=== PATIENT | female | born 1975 | race Asian ===

== ENCOUNTER 2025-02-10 10:27 | Emergency (ER) | payer BC, SELFPAY ==
[2025-02-10 10:31] VITALS: BP 138/91
[2025-02-10 11:45] VITALS: BMI 22.7
--- NOTE | 2025-02-10 12:11 | ED.GENMED ---
History of Present Illness
General
Chief Complaint: Back Pain
Source: patient
Exam Limitations: none
Time Seen by Provider: 02/10/25 11:19
Nursing documentation reviewed up to this point in time: agreed with
History of Present Illness
History of Present Illness:
49 yo female with hx HRT therapy since 08/2023, GLP1 treatment since 03/2023 presents for aching pain/sensation in the posterior R thigh, feels a 'ropy thing' along the medial aspect of the posterior thigh for past and is concerned for a blood clot.
She also states she's developed back pain since yesterday but attributes that to being aggravated by recent holiday decorating activities, including bending, standing, pushing, and pulling.
She reports a history of herniated disc, which occasionally flares up, potentially contributing to her back pain. States she would not be here for the back pain as she feels it is aggravation of her chronic intermittent pain. She was concerned that
perhaps the back pain might be related to the leg issue but was unsure. Denies CP, SOB
Past History
Past History
ED Past Medical History: Other (hemorrhoids)
ED Past Surgical History: Gynecological (Uterine ablation, endometrial polyp resection 03/21/2014) and Other (fibroadenoma resection of R breast)
Social History
Tobacco: Non-smoker
Alcohol: None
Drug: None
Personal:
Living: with family
Employment: Employed
Family History
Family History: Other (mother sarcoidosis)
Review of Systems
Review of Systems
Allergies reviewed?: Yes
All Other Systems: ROS reviewed and negative except as documented in HPI and ROS
Constitutional: Denies fever
Respiratory: Denies trouble breathing
Cardiac: Denies chest pain
ABD/GI: Denies abdominal pain
: Denies dysuria, incontinence or difficulty voiding
Musculoskeletal: Reports back pain (low back pain from doing a lot of holiday decorating past several days, similar to her past pain) and other (tender back of right thigh)
Skin: Reports no symptoms
Neurological: Denies weakness or numbness
Phy Exam
Physical Exam
Physical Exam:
GENERAL: No acute distress. A&Ox3.
CONSTITUTIONAL: Afebrile.
RESPIRATORY: Regular respirations, nonlabored, lungs clear.
CARDIOVASCULAR: Regular rate and rhythm, no murmurs, no rubs.
GI: Soft, nontender, normal BS
MUSCULOSKELETAL: Mildly tender up and down medial aspect posterior right thigh, no swelling, discoloration or palpable mass. Moves with ease. Distal n/v intact. Well perfused.
SKIN: Warm, dry, normal
PSYCH: Normal mood and affect. Well kept, interactive and appropriate
NEUROLOGIC: Awake, alert and oriented. No focal neurological deficits
Course
Orders/Labs/Results
Orders:
Orders
02/10/25 11:42
US Periph Venous LOWER Ext RT Urgent
Comment:
Reason For Exam: pain posterior thigh
Vital Signs
Initial and Last Documented VS:
Initial Vital Signs
Temp Pulse Resp BP Pulse Ox
98.3 F 84 16 138/91 100
02/10/25 10:31 02/10/25 10:31 02/10/25 10:31 02/10/25 10:31 02/10/25 10:31
Last Documented Vital Signs
Temp Pulse Resp BP Pulse Ox
98.3 F 84 16 138/91 100
02/10/25 10:31 02/10/25 10:31 02/10/25 10:31 02/10/25 10:31 02/10/25 12:17
MDM/Problems Addressed
Differential Diagnosis Includes:
DVT, muscle strain, sciatica, varicose vein
MDM/Problems Addressed:
49 yo female with hx HRT therapy since 08/2023, GLP1 treatment since 03/2023 presents for aching pain/sensation in the posterior R thigh, feels a 'ropy thing' along the medial aspect of the posterior thigh for past and is concerned for a blood clot.
She also states she's developed back pain since yesterday but attributes that to being aggravated by recent holiday decorating activities, including bending, standing, pushing, and pulling.
She reports a history of herniated disc, which occasionally flares up, potentially contributing to her back pain. States she would not be here for the back pain as she feels it is aggravation of her chronic intermittent pain. She was concerned that
perhaps the back pain might be related to the leg issue but was unsure. Denies CP, SOB
Although patient states she can feel the screw be mass along the medial aspect up and down her posterior right thigh, I am not feeling the same thing and it is actually similar to the posterior aspect of her opposite thigh.
Although hormone therapy, no sign of PE such as tachycardia, shortness of breath, chest pain, recent travel or history of clots
2:40 PM: Ultrasound negative for DVT. Patient notified and is relieved. Asked if there is anything else I can do for her here today and she states, no, is happy is not a DVT. Most likely hamstring strain.
Back pain is aggravation of her typical intermittent chronic low back pain and no further intervention needed. She will take her usual Ibuprofen
Stable for discharge
*Pulse Oximetry
SaO2: 100
Oxygen Mode of Delivery: Room air
Patient hypoxic: not evaluated
*Critical Care Note
Total Time (30-74mins, 75-104mins- exclusive of procedures): Not Applicable
ED Attending Note
-
Portions of this chart may have been created with voice recognition software.� Occasional wrong word or��sound alike� substitutions may have occurred due to the inherent limitations of voice recognition software.
Discharge Plan
Departure
Patient Disposition: Home (Routine Discharge)
Date of Disposition: 02/10/25
Time of Disposition: 12:45
Patient with high blood pressure during this ER visit?: No
Condition: Good
Discharge Problem:
Hamstring muscle strain
Instructions: Hamstring Muscle Strain (DC)
Prescriptions:
No Action
acetaminophen 325 mg Tablet
650 mg PO Q4HPRN PRN (Reason: Mild Pain / Temp > 101) Qty: 30 0RF
Referrals:
Sherry Gamino DO [Family Provider, Family Practice] - As needed
Activity Restrictions/Additional Instructions:
As we discussed, no clot on ultrasound. Ibuprofen as needed for pain.
Most likely aggravated your thigh muscle with all the activity and decorating past week.
Interventions
Interventions:
*Risk Screen - Suicide Last Done: 02/10/25 10:31
*General Assessment Last Done: 02/10/25 10:31
*Neglect/Abuse Screening Last Done: 02/10/25 10:31
*Nursing Disposition Last Done: 02/10/25 13:01
ED-Musculoskeletal Assessment Last Done: 02/10/25 11:45
Discharge Date and Time
Discharge Date/Time: 02/10/25 13:01
Print Language: CHINESE
== END 2025-02-10 13:01 | disposition home or self-care (01) ==
LOC: EMR 10:27
PROVIDERS: EMERGENCY PHYSICIAN Emergency Medicine; FAMILY PHYSICIAN Family Medicine
DX: S76.311A Strain of muscle, fascia and tendon of the posterior muscle group at thigh level, right thigh, initial encounter (principal); X58.XXXA Exposure to other specified factors, initial encounter; G89.29 Other chronic pain; M54.50 Low back pain, unspecified; Z79.890 Hormone replacement therapy
CPT/HCPCS: 99284; 93971